=== PATIENT | male | born 1980 ===

== ENCOUNTER 2016-06-15 02:42 | Emergency (ER) | payer OTHER ==
[~2016-06-15] VITALS: Ht 162.6 cm; Wt 56.8 kg
[2016-06-15 02:49] VITALS: BP 133/76; PULSE 80; TEMP 97.9
[2016-06-15] MEDS ORDERED: ZESTRIL 20MG TA20 MG PO (02:53)
[2016-06-15] MEDS ORDERED: PRILOSEC 20MG20 MG PO (02:54)
== END 2016-06-15 03:40 | disposition home or self-care (01) ==
LOC: COL.ER 02:42
DX: S06.0X0A Concussion without loss of consciousness, initial encounter (principal); S00.03XA Contusion of scalp, initial encounter; W01.198A Fall on same level from slipping, tripping and stumbling with subsequent striking against other object, initial encounter; I10 Essential (primary) hypertension; R40.2362 Coma scale, best motor response, obeys commands, at arrival to emergency department; R40.2142 Coma scale, eyes open, spontaneous, at arrival to emergency department; R40.2212 Coma scale, best verbal response, none, at arrival to emergency department

== ENCOUNTER 2018-05-02 12:56 | Emergency (ER) | payer SELFPAY ==
[~2018-05-02] VITALS: Ht 160 cm; Wt 75.0 kg
[~2018-05-02 12:56] MED LIST: PRILOSEC 20MG20 MG PO; ZESTRIL 20MG TA20 MG PO
[2018-05-02 12:58] VITALS: TEMP 98.9
[2018-05-02] MEDS ORDERED: FLEXERIL 1010 MG/TAB PO (15:00)
[2018-05-02] MEDS ORDERED: MEDROL 4MG DOSPA4 MG PO (15:00)
[2018-05-02] MEDS ORDERED: NORCO 325 MG-51 TAB PO (15:00)
[2018-05-02 15:56] VITALS: BP 119/75; PULSE 75
== END 2018-05-02 17:09 | disposition home or self-care (01) ==
LOC: COL.ER 12:56
DX: M54.5 Low back pain (principal)
CPT/HCPCS: J1170; J1885; J2550; J7512

== ENCOUNTER 2019-04-07 10:51 | Outpatient (RCR) | payer OTHER ==
[~2019-04-07 10:51] MED LIST changes: +FLEXERIL 1010 MG/TAB PO; +MEDROL 4MG DOSPA4 MG PO; +NORCO 325 MG-51 TAB PO
== END 2019-07-06 | disposition home or self-care (01) ==
LOC: WSOH
DX: S60.112A Contusion of left thumb with damage to nail, initial encounter (principal); F17.210 Nicotine dependence, cigarettes, uncomplicated; Z98.890 Other specified postprocedural states; R12 Heartburn; Y99.0 Civilian activity done for income or pay